=== PATIENT | female | born 1955 | race Caucasian/White ===

== ENCOUNTER 2019-06-02 11:02 | Outpatient (CLI) | payer MEDICARE ==
--- NOTE | 2019-06-02 12:16 | MMO ---
Bilateral MAMMO Bilat Screen [facility]. CLINICAL HISTORY: Patient is 63 years old and is seen for screening. The patient has no family history of breast cancer. The patient has no personal history of cancer. VIEWS: The views performed were: bilateral craniocaudal with tomosynthesis and bilateral mediolateral oblique with tomosynthesis. FILMS COMPARED: The present examination has been compared to prior imaging studies performed at [facility] on 04/19/2010, 11/16/2011, 09/04/2013 and 11/16/2016. This study has been interpreted with the assistance of computer-aided detection. MAMMOGRAM FINDINGS: There are scattered fibroglandular densities. There are no suspicious masses, suspicious calcifications, or new areas of architectural distortion. IMPRESSION: THERE IS NO MAMMOGRAPHIC EVIDENCE OF MALIGNANCY. A ROUTINE FOLLOW-UP MAMMOGRAM IN 1 YEAR IS RECOMMENDED. THE RESULTS OF THIS EXAM WERE SENT TO THE PATIENT. ACR BI-RADS Category 1 - Negative MAMMOGRAPHY NOTE: 1. A negative mammogram report should not delay a biopsy if a dominant of clinically suspicious mass is present. 2. Approximately 10% to 15% of breast cancers are not detected by mammography. 3. Adenosis and dense breasts may obscure an underlying neoplasm. Reported by: TILA HDZ MD Electonically Signed: [id number]
== END 2019-06-02 11:03 | disposition home or self-care (01) ==
LOC: BICMAMMO 11:02
PROVIDERS: ATTEND Internal Medicine
DX: Z12.31 Encounter for screening mammogram for malignant neoplasm of breast (principal)
CPT/HCPCS: 77063; 77067

== ENCOUNTER 2020-12-16 12:34 | Outpatient (CLI) | payer MEDICARE, OTHER | END 2020-12-16 12:35 | disposition home or self-care (01) | LOC: BICCT 12:34 | PROVIDERS: ATTEND Internal Medicine | DX: Z12.2 Encounter for screening for malignant neoplasm of respiratory organs (principal); Z87.891 Personal history of nicotine dependence; R91.8 Other nonspecific abnormal finding of lung field | CPT/HCPCS: 71271 ==

== ENCOUNTER 2020-12-16 13:08 | Outpatient (CLI) | payer MEDICARE | END 2020-12-16 13:09 | disposition home or self-care (01) | LOC: BICMAMMO 13:08 | PROVIDERS: ATTEND Internal Medicine | DX: Z12.31 Encounter for screening mammogram for malignant neoplasm of breast (principal); Z13.820 Encounter for screening for osteoporosis; Z78.0 Asymptomatic menopausal state | CPT/HCPCS: 77063; 77067; 77080 ==

== ENCOUNTER 2021-05-12 10:36 | Outpatient (CLI) | payer MEDICARE | END 2021-05-12 10:37 | disposition home or self-care (01) | LOC: BICRAD 10:36 | PROVIDERS: ATTEND Internal Medicine | DX: M79.642 Pain in left hand (principal); M18.12 Unilateral primary osteoarthritis of first carpometacarpal joint, left hand | CPT/HCPCS: 80048; 83036; 84550; 85025 ==

== ENCOUNTER 2023-08-07 10:08 | Outpatient (CLI) | payer MEDICARE | END 2023-08-07 10:09 | disposition home or self-care (01) | LOC: BICCT 10:08 | PROVIDERS: ATTEND Internal Medicine | DX: Z12.31 Encounter for screening mammogram for malignant neoplasm of breast (principal); Z13.820 Encounter for screening for osteoporosis; Z12.2 Encounter for screening for malignant neoplasm of respiratory organs; F17.210 Nicotine dependence, cigarettes, uncomplicated; Z78.0 Asymptomatic menopausal state | CPT/HCPCS: 71271; 77063; 77067; 77080 ==

== ENCOUNTER 2025-02-02 11:55 | Outpatient (CLI) | payer MEDICARE | END 2025-02-02 11:56 | disposition home or self-care (01) | LOC: BICRAD 11:55 | PROVIDERS: ATTEND Nurse Practitioner Family | DX: R05.1 Acute cough (principal) | CPT/HCPCS: 71046 ==

== ENCOUNTER 2025-05-20 14:28 | Outpatient (CLI) | payer MEDICARE | END 2025-05-20 14:29 | disposition home or self-care (01) | LOC: BICMRI 14:28 | PROVIDERS: ATTEND Internal Medicine | DX: M25.552 Pain in left hip (principal); M81.0 Age-related osteoporosis without current pathological fracture; R93.7 Abnormal findings on diagnostic imaging of other parts of musculoskeletal system ==